=== PATIENT | female | born 1940 | race Caucasian/White ===

== ENCOUNTER 2017-02-23 17:16 | Emergency (ER) | payer OTHER, MEDICARE ==
[~2017-02-23] VITALS: Ht 152.4 cm; Wt 58.1 kg
--- NOTE | 2017-02-23 17:34 | NUR ---
PT REC'D TO ER C/OP FLU LIKE SYMTOMS . CUGH AND ACHING . FOR 2 DAYS . CHEST XRAY DONE AWAITING EVALUATION BY ER PROVIDER.
--- NOTE | 2017-02-23 18:33 | NUR ---
PT. VERBALIZED UNDERSTANDING OF AFTERCARE INSTRUCTIONS.Patient discharged to home in stable condition. Written and verbal after care instructions given. Patient verbalizes understanding of instruction.
[2017-02-23 18:34] VITALS: BP 133/67
[2017-02-23] MEDS ORDERED: IBUPROFEN 600 MG TABLET PO ONE ×2 (18:37→19:00)
--- NOTE | 2017-02-23 18:39 | NUR ---
NOTIFIED MD PABLO 102. ORAL ORDERED MOTRIN 600 MG PO NOW GIVEN Patient discharged to home in stable condition. Written and verbal after care instructions given. Patient verbalizes understanding of instruction.
== END 2017-02-23 18:47 | disposition home or self-care (01) ==
LOC: ER 17:19
DX: J06.9 Acute upper respiratory infection, unspecified (principal); Z88.2 Allergy status to sulfonamides
CPT/HCPCS: 71045-TC; A4606; Z7610

== ENCOUNTER 2017-02-27 10:37 | Inpatient (IN) | payer OTHER, MEDICARE ==
[~2017-02-27] VITALS: Ht 165.1 cm; Wt 58.1 kg
--- NOTE | 2017-02-27 11:04 | NUR ---
BIB [facility]ILY [facility] VIA WHEELCHAIR. C/O FLU LIKE SYMPTOMS, [place], DIARRHEA ~ 5-6 DAYS. JAMILA MORALES NAD, MD AT BEDSIDE.
[2017-02-27] MEDS ORDERED: IV NS 0.9% 1,000 ML BAG IV ONE (11:30)
[2017-02-27 11:31] LABS: BASOPHILS % (AUTO) 0.2 % (0.0-2.0); EOSINOPHILS % (AUTO) 0.6 % (0.0-6.0); HEMATOCRIT 39 % (33-45); HEMOGLOBIN 13.7 g/dL (11.5-14.8); LYMPHOCYTES # (AUTO) 0.7 /CMM (0.8-4.8); LYMPHOCYTES % (AUTO) 14.2 % (20.0-44.0); MEAN CORPUSCULAR HEMOGLOBIN 30 PG (26.0-33.0); MEAN CORPUSCULAR HGB CONC 35 g/dl (31.0-36.0); MEAN CORPUSCULAR VOLUME 85 fL (82-100); MONOCYTES % (AUTO) 19.4 % (2.0-12.0); NEUTROPHILS # (AUTO) 3.2 /CMM (1.8-8.9); NEUTROPHILS % (AUTO) 65.6 % (43.0-81.0); PLATELET COUNT (AUTO) 225 /CMM (150-450); RDW COEFFICIENT OF VARIATION 12.4 (11.5-15.0); RED BLOOD CELL COUNT(AUTO) 4.61 MIL/uL (4.0-5.2); WHITE BLOOD COUNT (AUTO) 4.9 K/uL (4.3-11.0)
[2017-02-27 11:38] LABS: CALCIUM, SERUM 8.7 mg/dL (8.5-10.1); CARBON DIOXIDE 26 mmol/L (21-32); CHLORIDE 90 mmol/L (98-107); CREATININE 0.5 mg/dL (0.6-1.3); GLUCOSE 102 mg/dL (74-106); POTASSIUM 3.8 mmol/L (3.5-5.1); SODIUM SERUM 125 mmol/L (136-145); UREA NITROGEN, BLOOD 4 mg/dL (7-18)
[2017-02-27 11:42] LABS: INR 0.98 (0.87-1.13)
[2017-02-27 11:46] LABS: TROPONIN I < 0.017 ng/mL (0.00-0.056)
[2017-02-27 11:49] LABS: ALANINE AMINOTRANSFERASE 33 U/L (12-78); ALBUMIN 3.2 g/dL (3.4-5.0); ALKALINE PHOSPHATASE 85 U/L (46-116); ASPARTATE AMINOTRANSFERASE 37 U/L (15-37); BILIRUBIN,DIRECT 0.1 mg/dL (0.0-0.2); BILIRUBIN,TOTAL 0.3 mg/dL (0.2-1.0); TOTAL PROTEIN, SERUM 7.2 g/dL (6.4-8.2)
[2017-02-27 12:01] LABS: BAND % (MANUAL) 5 % (0.0-5.0); LYMPHOCYTES % (MANUAL) 10 % (16-48); MONOCYTES % (MANUAL) 27 % (0-11.0); NEUTROPHILS % (MANUAL) 58 (42-76)
[2017-02-27] MEDS ORDERED: ATOR40TA PO (12:11)
[2017-02-27] MEDS ORDERED: OSEL75CA PO (12:11)
--- NOTE | 2017-02-27 13:34 | NUR ---
CALLED NURSE SUP FOR MED/SURG BED
[2017-02-27 14:26] LABS: APPEARANCE,URINE CLEAR (CLEAR); BILIRUBIN,URINE NEGATIVE (NEGATIVE); BLOOD, URINE TRACE-INTA Ery/uL (NEGATIVE); COLOR,URINE YELLOW (YELLOW); KETONES,URINE NEGATIVE (NEGATIVE); LEUKOCYTE ESTERASE ,URINE NEGATIVE (NEGATIVE); NITRITE, URINE NEGATIVE (NEGATIVE); PH,URINE 6.5 (5.0-8.0); PROTEIN,URINE NEGATIVE (NEGATIVE); UGLUCOSE NEGATIVE (NEGATIVE); UROBILINOGEN,URINE 0.2 EU/dL (0.2)
[2017-02-27 14:47] LABS: BACTERIA,URINE None seen /HPF (None Seen); RBC,URINE 0-2 /HPF (0-2); SQUAMOUS EPITHELIAL CELL,UR Few /HPF (None Seen); WBC,URINE 0-2 /HPF (0-3)
[2017-02-27] MEDS ORDERED: IV NS 0.9% 1,000 ML IV PRN (15:27)
[2017-02-27] MEDS ORDERED: Z GUARD REMEDY 2 OZ OINT TP PRN (15:30)
[2017-02-27] MEDS ORDERED: ONDANSETRON HCL/PF 4 MG/2 ML VIAL IVP PRN (15:30)
[2017-02-27] MEDS ORDERED: HYDROCODONE/APAP 5/325MG 1 EACH TABLET PO PRN (15:30)
[2017-02-27] MEDS ORDERED: ZOLPIDEM TARTRATE 5 MG TABLET PO PRN (15:30)
[2017-02-27] MEDS ORDERED: MAG HYDROX/AL HYDROX/SIMETH 30 ML UDC PO PRN (15:30)
[2017-02-27] MEDS ORDERED: ACETAMINOPHEN 325 MG TABLET PO PRN (15:30)
[2017-02-27] MEDS ORDERED: MAGNESIUM HYDROXIDE 30 ML UDC PO PRN (15:30)
--- NOTE | 2017-02-27 15:31 | NUR ---
GAVE REPORT TO NURSE TAKING CARE OF ROOM 307-1
--- NOTE | 2017-02-27 16:00 | NUR ---
MS RN RECEIVED A NEW ADMISSION,76 YEAR OLD FEMALE, AWAKE,ALERT,ORIENTED X4,NOT IN ANY FORM OF DISTRESS,RESPIRATIONS EVEN AND UNLABORED,NO SOB NOTED, LUNGS ARE DIMINISHES, ABDOMEN SOFT,POSITIVE BOWEL SOUNDS, DENIES PAIN AT THIS TIME,,. HANNY IS THE ADMITTING MD W/ ORDERS, NO DISTRESS NOTED.ALL NEEDS ATTENDED.
[2017-02-27 16:30] VITALS: BP 121/62
--- NOTE | 2017-02-27 16:53 | NUR ---
MS GARAGE DOOR TECHNICIAN DONE W/ DUE MEDS GIVEN,TOLERATED WELL.
[2017-02-27] MEDS ORDERED: ENOXAPARIN SODIUM 40 MG/0.4 ML DISP.SYRIN SQ SCH (17:00)
[2017-02-27] MEDS ORDERED: OSELTAMIVIR PHOSPHATE 75 MG CAPSULE PO SCH (18:00)
--- NOTE | 2017-02-27 19:22 | NUR ---
MS RN PATIENT ON BED, NO CHANGE OF CONDITION.
--- NOTE | 2017-02-27 19:25 | NUR ---
MS/RN OPENING NOTES PT RECEIVED SITTING UP IN BED, HIGH FOWLERS POSITION. ON ROOM AIR, BREATHING EVEN AND UNLABORED. IN NO APPARENT DISTRESS. DENIES SOB OR PAIN. NON PRODUCTIVE COUGH NOTED. I TO RIGHT AC PATENT AND INTACT RUNNING IVF ORDERED. BED IN LOW/LOCKED POSITION WITH CALL LIGHT IN REACH. SIDE RAILS UPX2. WILL CONTINUE TO MONITOR
[2017-02-27 20:00] VITALS: BP 123/56
[2017-02-28 06:32] LABS: BASOPHILS % (AUTO) 0.4 % (0.0-2.0); EOSINOPHILS # (AUTO) 0.1 /CMM (0.0-0.7); EOSINOPHILS % (AUTO) 3.2 % (0.0-6.0); HEMATOCRIT 35 % (33-45); HEMOGLOBIN 12.4 g/dL (11.5-14.8); LYMPHOCYTES # (AUTO) 1.1 /CMM (0.8-4.8); MEAN CORPUSCULAR HEMOGLOBIN 30 PG (26.0-33.0); MEAN CORPUSCULAR HGB CONC 35 g/dl (31.0-36.0); MEAN CORPUSCULAR VOLUME 87 fL (82-100); MONOCYTES # (AUTO) 0.9 /CMM (0.1-1.30); MONOCYTES % (AUTO) 21.7 % (2.0-12.0); NEUTROPHILS % (AUTO) 47.7 % (43.0-81.0); PLATELET COUNT (AUTO) 217 /CMM (150-450); RDW COEFFICIENT OF VARIATION 13.3 (11.5-15.0); RED BLOOD CELL COUNT(AUTO) 4.07 MIL/uL (4.0-5.2); WHITE BLOOD COUNT (AUTO) 4.2 K/uL (4.3-11.0)
[2017-02-28 06:37] LABS: CHOLESTEROL 128 mg/dL (<200); HDL CHOLESTEROL 57 mg/dL (40-60); LDL 66 mg/dL (0-99); TRIGLYCERIDES 55 mg/dL (30-150)
[2017-02-28 06:45] LABS: CALCIUM, SERUM 7.9 mg/dL (8.5-10.1); CARBON DIOXIDE 23 mmol/L (21-32); CHLORIDE 97 mmol/L (98-107); CREATININE 0.4 mg/dL (0.6-1.3); GLUCOSE 94 mg/dL (74-106); MAGNESIUM 1.9 mg/dL (1.8-2.4); PHOSPHORUS 2.6 mg/dL (2.5-4.9); POTASSIUM 3.5 mmol/L (3.5-5.1); SODIUM SERUM 130 mmol/L (136-145); UREA NITROGEN, BLOOD 2 mg/dL (7-18)
[2017-02-28 06:47] LABS: IRON, SERUM 39 ug/dl (50-175); TOTAL IRON BINDING CAPACITY 193 ug/dl (250-450)
--- NOTE | 2017-02-28 07:50 | NUR ---
MS/RN CLOSING NOTES PT AWAKE, SITTING UP IN BED. A/OX4. REMAINS ON ROOM AIR, BREATHING EVEN AND UNLABORED. NO SOB OR PAIN NOTED. NON PRODUCTIVE COUGH PRESENT. IV TO LAC PATENT AND INTACT RUNNING IVF ORDERED. KEPT COMFORTABLE DURING SHIFT. ALL NEEDS MET. PT HAD X3 BOWEL MOVEMENTS DURING SHIFT HOWEVER NO LIQUID DIARRHEA. BM'S WERE PASTE-Y. UNABLE TO COLLECT STOOL FOR C.DIFF. NO SIGNIFICANT CHANGES OVERNIGHT. BED IN LOW/LOCKED POSITION WITH CALL LIGHT IN REACH. SIDE RAILS UPX2. ENDORSED TO DAY SHIFT RN ANA.
--- NOTE | 2017-02-28 07:55 | NUR ---
MS RN OPENING NOTE RECEIVED BEDSIDE SBAR REPORT ON THE PATIENT. PATIENT IS A/O X3, FORGETFUL, ANXIOUS. DENIES PAIN/DISCOMFORT AT THIS TIME. PATIENT IS ON ROOM AIR. CHEST RISING EQUALLY BILATERALLY. PATIENT IS IN BED. BED IS LOCKED IN LOWEST POSITION. SIDE RAILS ARE UP X2. CALL LIGHT WITHIN REACH. PATIENT EDUCATED TO USE THE CALL LIGHT TO CALL FOR ASSISTANCE. ALL NEEDS ARE MET. WILL CONTINUE TO ASSESS/MONITOR.
[2017-02-28 08:00] VITALS: BP_SYST 140; BP_DIAS 49; BP_DIAS 69
[2017-02-28] MEDS ORDERED: ATORVASTATIN 40 MG TABLET PO SCH ×2 (09:00→22:00)
--- NOTE | 2017-02-28 09:53 | NUR ---
PATIENT STATED SHE TAKES LIPITOR AT NIGHT. PHARMACY INFORMED.
[2017-02-28 10:04] LABS: BAND % (MANUAL) 2 % (0.0-5.0); EOSINOPHILS % (MANUAL) 2 % (0-4); LYMPHOCYTES % (MANUAL) 26 % (16-48); MONOCYTES % (MANUAL) 16 % (0-11.0); NEUTROPHILS % (MANUAL) 54 (42-76)
[2017-02-28 16:15] VITALS: BP 133/67
--- NOTE | 2017-02-28 17:41 | NUR ---
DISCHARGE INSTRUCTIONS PROVIDED. DISCHARGE POCKET GIVEN TO THE PATIENT. IV CATHETER REMOVED WITH THE TIP INTACT. OCLUSIVE DRESSING PROVIDED. ALL NEEDS MET. PATIENT WILL LEAVE THE HOSPITAL ACCOMPANIED BY SHELLY, THE SON IN LAW. ALL BELONGINGS ARE ACCOUNTED FOR. SKIN IS INTACT. WAITING FOR THE SON IN LAW'S ARRIVAL.
== END 2017-02-28 18:07 | disposition home or self-care (01) | DRG 866 ==
LOC: ER 10:39 → MED 15:27
DX: B34.9 Viral infection, unspecified (principal); E86.0 Dehydration; E87.1 Hypo-osmolality and hyponatremia; E86.1 Hypovolemia; D72.821 Monocytosis (symptomatic); E78.5 Hyperlipidemia, unspecified; Z87.891 Personal history of nicotine dependence; Z85.3 Personal history of malignant neoplasm of breast; Z88.2 Allergy status to sulfonamides; Z79.899 Other long term (current) drug therapy
CPT/HCPCS: 36415; 71045-TC; 80048-TC; 80061-TC; 80076-TC; 81000-TC; 83540-TC; 83605-TC; 83735-TC; 84100-TC; 84484-TC; 85025-TC; 85730-TC; 87040-TC; 87081-TC; 87086-TC; 87400; A4606; J1650; J7030; J7040; Z7610